=== PATIENT | male | born 1995 | race Hispanic/Latino ===

== ENCOUNTER 2019-09-12 12:56 | Emergency (ER) | payer OTHER ==
[~2019-09-12] VITALS: Ht 190.5 cm; Wt 113.4 kg
[2019-09-12] MEDS ORDERED: CEFTRIAXONE SOD 500 MG VIAL IM ONE (14:15)
--- NOTE | 2019-09-12 14:36 | Emergency Department Note ---
History of Present Illnes History of Present Illness Chief Complaint: COVID PUI History of Present Illness This is a 23 year old male he was seen at clinic on mon for painful burning urination and dx with uti tested for gonorrhea and clamydia has not gotten results back yet states symptoms are worse c/o back pain and fever with n/v c/o muscle aches/chills denies diarrhea worried he may have std last he had sex was this morning and having sex with the same female also c/o dizziness pt given cipro at clinic no pain meds, no IM meds. c/o penile discharge x 3 days with dysuria Historian: Patient Arrival Mode: Car Teletype Telegrapher Required: No Onset (how long ago): day(s) (3) Location: lower back Radiation: Reports non-radiation Severity: moderate Onset quality: gradual Timing of current episode: constant Progression: waxing and waning Chronicity: new Context: Denies recent illness Relieving factors: none Exacerbating factors: none Associated symptoms: Reports denies other symptoms Treatments prior to arrival: none Past Medical/Family History Physician Review I have reviewed the patient's past medical and family history. Any updates have been documented here. Past Medical History Recent Fever: No Clinical Suspicion of Infectio: Yes New/Unexplained Change in Ment: No Past Medical History: None Past Surgical History: None Social History Smoking Cessation: Never Smoker Counseling Performed: No Alcohol Use: None Any Illegal Drug Use: No TB Exposure/Symptoms: No Physically hurt or threatened: No Family History Family history of heart diseas: No Other Any Pre-Existing Lines (PICC,: No Review of Systems Review of Systems Constitutional: Reports no symptoms EENTM: Reports no symptoms Cardiovascular: Reports no symptoms Respiratory: Reports no symptoms Gastrointestinal: Reports no symptoms Genitourinary: Reports as per HPI Musculoskeletal: Reports no symptoms Integumentary: Reports no symptoms Neurological: Reports no symptoms Psychological: Reports no symptoms Endocrine: Reports no symptoms Hematological/Lymphatic: Reports no symptoms Physical Exam Related Data Triage Vital Signs Vital Signs Date Time Temp Pulse Resp B/P (MAP) Pulse Ox O2 Delivery O2 Flow Rate FiO2 09/12/19 13:47 97.9 104 18 137/92 99 Room Air Vital signs reviewed: Yes Physical Exam CONSTITUTIONAL Constitutional: Present well-developed, Present well-nourished HENT HENT: Present normocephalic, Present atraumatic, Present oropharynx clear/moist, Present nose normal HENT L/R: Present left ext ear normal, Present right ext ear normal EYES Eyes: Reports PERRL, Reports conjunctivae normal NECK Neck: Present ROM normal PULMONARY Pulmonary: Present effort normal, Present breath sounds normal CARDIOVASCULAR Cardiovascular: Present regular rhythm, Present heart sounds normal, Present capillary refill normal, Present normal rate GASTROINTESTINAL Abdominal: Present soft, Present nontender, Present bowel sounds normal GENITOURINARY Genitourinary: Present penis normal (uncircumcised, no discharge around glans, positive ds/c from urethral meatus), Present other (no testicular tenderness) SKIN Skin: Present warm, Present dry MUSCULOSKELETAL Musculoskeletal: Present ROM normal NEUROLOGICAL Neurological: Present alert, Present oriented x 3, Present no gross motor or sensory deficits PSYCHOLOGICAL Psychological: Present mood/affect normal, Present judgement normal Assessment & Plan Medical Decision Making [facility] im rocephin, po Azithro Reassessment Reassessment dc home, no sexual relations until all partners completely treated, F/U PCP tomorrow Assessment & Plan Final Impression: (1) STD (male) Depart Disposition: HOME, SELF-CARE Last Vital Signs Date Time Temp Pulse Resp B/P (MAP) Pulse Ox O2 Delivery O2 Flow Rate FiO2 09/12/19 13:47 97.9 104 18 137/92 99 Room Air Medications in the ED Ceftriaxone Sodium 500 mg ONCE ONCE IM ; Start 09/12/19 at 14:15; Stop 09/12/19 at 14:16; Status UNV Azithromycin 1,000 mg NOW ONCE PO ; Start 09/12/19 at 14:15; Stop 09/12/19 at 14:16; Status UNV CLIFFORD MULLEN MD Sep 12, 2019 14:36
[2019-09-12] MEDS ORDERED: AZITHROMYCIN 250 MG TAB ONE (14:43)
[2019-09-12] MEDS ORDERED: AZITHROMYCIN 250 MG TAB PO ONE (14:45)
== END 2019-09-12 15:05 | disposition home or self-care (01) ==
LOC: ER 12:56
DX: A64 Unspecified sexually transmitted disease (principal)
CPT/HCPCS: 99282; J0696

== ENCOUNTER 2019-10-29 21:16 | Emergency (ER) | payer OTHER ==
[~2019-10-29] VITALS: Ht 190.5 cm; Wt 115.2 kg
--- NOTE | 2019-10-29 21:19 | Emergency Department Note ---
History of Present Illnes History of Present Illness History of Present Illness This is a 23 year old male presents to the ED for right sided chest wall pain after he was juijitsu sparring with a partner prior to arrival. Historian: Patient Arrival Mode: Car Onset (how long ago): hour(s) (1) Location: right chest wall Quality: sharp Onset quality: sudden Duration (how long): hour(s) (1) Timing of current episode: constant Progression: unchanged Chronicity: new Context: Reports trauma/injury; Denies recent illness Relieving factors: immobilization, rest Exacerbating factors: movement Associated symptoms: Reports chest pain Treatments prior to arrival: none Past Medical/Family History Physician Review I have reviewed the patient's past medical and family history. Any updates have been documented here. Past Medical History Recent Fever: No Clinical Suspicion of Infectio: No New/Unexplained Change in Ment: No Past Medical History: None Past Surgical History: None Social History Smoking Cessation: Never Smoker Alcohol Use: None Any Illegal Drug Use: No Review of Systems Review of Systems Constitutional: Reports no symptoms EENTM: Reports no symptoms Cardiovascular: Reports chest pain Respiratory: Reports no symptoms Gastrointestinal: Reports no symptoms Genitourinary: Reports no symptoms Musculoskeletal: Reports no symptoms Integumentary: Reports no symptoms Neurological: Reports no symptoms Psychological: Reports no symptoms Endocrine: Reports no symptoms Hematological/Lymphatic: Reports no symptoms Physical Exam Related Data Allergies: Coded Allergies: No Known Allergies (Unverified , 09/12/19) Triage Vital Signs Vital Signs Date Time Temp Pulse Resp B/P (MAP) Pulse Ox O2 Delivery O2 Flow Rate FiO2 10/29/19 22:33 98.3 81 21 138/97 100 Room Air Vital signs reviewed: Yes Physical Exam CONSTITUTIONAL Constitutional: Present well-developed, Present well-nourished HENT HENT: Present normocephalic, Present atraumatic, Present oropharynx clear/moist, Present nose normal HENT L/R: Present left ext ear normal, Present right ext ear normal EYES Eyes: Reports PERRL, Reports conjunctivae normal NECK Neck: Present ROM normal PULMONARY Pulmonary: Present chest tenderness (anterior right lower region) CARDIOVASCULAR Cardiovascular: Present regular rhythm, Present heart sounds normal, Present capillary refill normal, Present normal rate GASTROINTESTINAL Abdominal: Present soft, Present nontender, Present bowel sounds normal GENITOURINARY Genitourinary: Present exam deferred SKIN Skin: Present warm, Present dry MUSCULOSKELETAL Musculoskeletal: Present ROM normal NEUROLOGICAL Neurological: Present alert, Present oriented x 3, Present no gross motor or sensory deficits PSYCHOLOGICAL Psychological: Present mood/affect normal, Present judgement normal Results Imaging Imaging results reviewed: Yes Impressions [facility] [address] [address] Patient Name: EUGENIO METZGER MR #: [id number] : 1995 Age/Sex: 23/M Req #: [id number] Adm Physician: Ordered by: YOKASTA GRIFFIN DO Report #: [id number] Location: ER Room/Bed: Procedure: [id number] CT/CT CHEST WO Exam Date: 10/29/19 Exam Time: 2200 REPORT STATUS: Signed EXAM: CT Chest WITHOUT contrast INDICATION: RLL rib pain COMPARISON: None TECHNIQUE: Chest was scanned utilizing a multidetector helical scanner from the lung apex through the level of the adrenal glands without administration of IV contrast. Absence of intravenous contrast decreases sensitivity for detection of lymphadenopathy and vascular pathology. Coronal and sagittal reformations were obtained. Routine protocol was performed. IV CONTRAST: None COMPLICATIONS: None RADIATION DOSE: Total DLP: 711.20 mGy*cm Estimated effective dose: (DLP x 0.014 x size factor) mSv CTDIvol has been reviewed. It is below the limits set by the Radiation Protocol Committee (RPC). Dose modulation, iterative reconstruction, and/or weight based adjustment of the mA/kV was utilized to reduce the radiation dose to as low as reasonably achievable. FINDINGS: LINES/ TUBES: None. LUNGS AND AIRWAYS: The lungs are unremarkable. Airways are normal. PLEURA: The pleural spaces are clear. HEART AND MEDIASTINUM: The thyroid gland is normal. No mediastinal, hilar or axillary lymphadenopathy. The heart is normal in size. There is no pericardial effusion. UPPER ABDOMEN: Unremarkable. BONES: The visualized bony thorax is within normal limits. SOFT TISSUES: Unremarkable. IMPRESSION: No acute displaced rib fractures. Signed by: Benson Herman MD on 10/29/2019 11:15 PM Dictated By: BENSON HERMAN MD 14 Transcribed By: KASIE on 10/29/192314 COPY TO: YOKASTA GRIFFIN DO~ Assessment & Plan Medical Decision Making MDM Chest wall trauma , Diff Dx : rib fracture, pneumothorax, liver laceration, rib contusion., chest wall contusion, chest wall strain . Assessment & Plan Final Impression: (1) Chest wall contusion Depart Disposition: HOME, SELF-CARE YOKASTA GRIFFIN DO Oct 29, 2019 21:19
--- NOTE | 2019-10-29 23:18 | Diagnostic Imaging Report ---
EXAM: CT Chest WITHOUT contrast INDICATION: RLL rib pain COMPARISON: None TECHNIQUE: Chest was scanned utilizing a multidetector helical scanner from the lung apex through the level of the adrenal glands without administration of IV contrast. Absence of intravenous contrast decreases sensitivity for detection of lymphadenopathy and vascular pathology. Coronal and sagittal reformations were obtained. Routine protocol was performed. IV CONTRAST: None COMPLICATIONS: None RADIATION DOSE: Total DLP: 711.20 mGy*cm Estimated effective dose: (DLP x 0.014 x size factor) mSv CTDIvol has been reviewed. It is below the limits set by the Radiation Protocol Committee (RPC). Dose modulation, iterative reconstruction, and/or weight based adjustment of the mA/kV was utilized to reduce the radiation dose to as low as reasonably achievable. FINDINGS: LINES/ TUBES: None. LUNGS AND AIRWAYS: The lungs are unremarkable. Airways are normal. PLEURA: The pleural spaces are clear. HEART AND MEDIASTINUM: The thyroid gland is normal. No mediastinal, hilar or axillary lymphadenopathy. The heart is normal in size. There is no pericardial effusion. UPPER ABDOMEN: Unremarkable. BONES: The visualized bony thorax is within normal limits. SOFT TISSUES: Unremarkable. IMPRESSION: No acute displaced rib fractures. Signed by: Dm Horvath MD on 10/29/2019 11:15 PM
[2019-10-29 23:57] VITALS: BP 142/88
--- OUTSIDE RECORDS SUMMARY | 2019-10-30 00:35 | XMS REPORT | Continuity of Care Document ---
Author Author [facility] t Organization [facility] Address [address] [place] [address] Phone Unavailable Care Team Providers Care Brisket Puller Name Role Phone NONSTAFF PCP Unavailable YOKASTA GRIFFIN Unavailable Payers Payer Name Policy Type Policy Number Effective Date Expiration Date Hollie kong [employer] o [id number] 2019 00:00:00 [facility] Miscellaneous o [id number] 2019 00:00:00 [facility] Problems Condition Name Condition Details Condition Category Status Onset Date Resolution Date Last Treatment Date Treating Clinician Comments Source Sexually transmitted disease in male Problem Active [facility] Allergies, Adverse Reactions, Alerts Allergy Name Allergy Type Status Severity Reaction(s) Onset Date Inacti ve Date Treating Clinician Comments Source No Known Allergies DA Active U 2018-03-15 00:00:00 [facility] No Known Contrast Allergies DA Active U 2007-12-05 00:00: 00 [facility] No Known Drug Allergies DA Active U 2007-12-05 00:00:00 [facility] No Known Food Allergies DA Active U 2007-12-05 00:00:00 [facility] No Known Other Allergies DA Active U 2007-12-05 00:00:00 [facility] Social History Social Habit Start Date Stop Date Quantity Comments Source Sex Assigned At 1995 00:00:00 1995 00:00:00 Male [facility] Medications This patient has no known medications. Vital Signs Vital Name Observation Time Observation Value Comments Source Weight 2019-09-12 13:47:00 250 [lb_av] [facility] BMI (Body Mass Index) 2019-09-12 13:47:00 31.2 kg/m2 [facility] Procedures This patient has no known procedures. Plan of Care Planned Activity Planned Date Details Comments Source Instructions Urinary Tract Infection - Men [facility] Encounters Start Date/Time End Date/Time Encounter Type Admission Type Attendi [facility] Care Department Encounter ID Source 2019-09-12 12:56:00 2019-09-12 15:05:00 Departed Emergency Room [facility] [id number] [facility] Results Test Description Test Time Test Comments Results Result Comments Source CT CHEST WO 2019-10-29 23:05:00 [facility] [address] [address] Patient Name: EUGENIO METZGER MR #: [id number] : 1995 Age/Sex: 23/M Req #: [id number] Adm Physician: Ordered by: YOKASTA GRIFFIN DO Report #: [id number] Location: ER Room/Bed: Procedure: [id number] CT/CT CHEST WO Exam Date: 10/29/19 Exam Time: 2200 REPORT STATUS: Signed EXAM: CT Chest WITHOUT contrast INDICATION: RLL rib pain COMPARISON: None TECHNIQUE: Chest was scanned utilizing a multidetector helical scanner from the lung apex through the level of the adrenal glands without administration of IV contrast. Absence of intravenous contrast decreases sensitivity for detection of lymphadenopathy and vascular pathology. Coronal and sagittal reformations were obtained. Routine protocol was performed. IV CONTRAST: None COMPLICATIONS: None RADIATION DOSE: Total DLP: 711.20 mGy*cm Estimated effective dose: (DLP x 0.014 x size factor) mSv CTDIvol has been reviewed. It is below the limits set by the Radiation Protocol Committee (RPC). Dose modulation, iterative reconstruction, and/or weight based adjustment of the mA/kV was utilized to reduce the radiation dose to as low as reasonably achievable. FINDINGS: LINES/ TUBES: None. LUNGS AND AIRWAYS: The lungs are unremarkable. Airways are normal. PLEURA: The pleural spaces are clear. HEART AND MEDIASTINUM: The thyroid gland is normal. No mediastinal, hilar or axillary lymphadenopathy. The heart is normal in size. There is no pericardial effusion. UPPER ABDOMEN: Un remarkable. BONES: The visualized bony thorax is within normal limits. SOFT TISSUES: Unremarkable. IMPRESSION: No acute displaced rib fractures. Signed by: Benson Herman MD on 10/29/2019 11:15 PM Dictated By: BENSON HERMAN MD 14 Transcribed By: KASIE on 10/29/192314 COPY TO: YOKASTA GRIFFIN DO
== END 2019-10-29 23:50 | disposition home or self-care (01) ==
LOC: ER 21:20
DX: R07.89 Other chest pain (principal); S20.211A Contusion of right front wall of thorax, initial encounter; Y93.75 Activity, martial arts; Y92.39 Other specified sports and athletic area as the place of occurrence of the external cause
CPT/HCPCS: 71250; 99283

== ENCOUNTER 2019-11-04 01:13 | Emergency (ER) | payer OTHER ==
[~2019-11-04] VITALS: Ht 188 cm; Wt 115.2 kg
[2019-11-04] MEDS ORDERED: KETOROLAC TROMETHAMINE 60 MG/2 ML VIAL IM ONE (01:30)
[2019-11-04] MEDS ORDERED: ORPHENADRINE CITRATE 30 MG/ML VIAL IM ONE (01:30)
--- NOTE | 2019-11-04 01:34 | Emergency Department Note ---
History of Present Illnes History of Present Illness Chief Complaint: Abdominal Complaints History of Present Illness This is a 23 year old male C/O RT LOWER RIB PAIN X 2 WEEKS. PT WAS SEEN IN THIS ED AFTER INITIAL TRAUMA TO AREA AFTER JIU JITSU CLASS, CT NEG FOR FRACTURE AT THAT TIME. PT STATES TODAY HE HAD CPR CLASS AND TONIGHT PAIN IT WORSENED UPON LAYING DOWN TO SLEEP. 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 PT ALSO REPORTS DRINKING BEER X 2 TONIGHT. . Historian: Patient Arrival Mode: Car Onset (how long ago): hour(s) (2) Location: RIGHT RIBS Quality: PAIN Radiation: Reports non-radiation Severity: moderate Onset quality: gradual Duration (how long): hour(s) (2) Timing of current episode: constant Progression: worsening Chronicity: recurrent Context: Reports trauma/injury (INJURED RIGHT RIBS RECENTLY IN JU JITSU CLASS); Denies recent illness, Denies recent surgery Relieving factors: none Exacerbating factors: movement Associated symptoms: Reports denies other symptoms Treatments prior to arrival: other (TRAMADOL 100 MG PO HEMATOLOGY TECHNOLOGIST) Past Medical/Family History Physician Review I have reviewed the patient's past medical and family history. Any updates have been documented here. Past Medical History Recent Fever: No Clinical Suspicion of Infectio: No New/Unexplained Change in Ment: No Past Medical History: None Past Surgical History: None Social History Smoking Cessation: Never Smoker Alcohol Use: Occasional Any Illegal Drug Use: No Physically hurt or threatened: No Family History Family history of heart diseas: No Review of Systems Review of Systems Constitutional: Reports no symptoms EENTM: Reports no symptoms Cardiovascular: Reports no symptoms Respiratory: Reports no symptoms Gastrointestinal: Reports no symptoms Genitourinary: Reports no symptoms Musculoskeletal: Reports as per HPI Integumentary: Reports no symptoms Neurological: Reports no symptoms Psychological: Reports no symptoms Endocrine: Reports no symptoms Hematological/Lymphatic: Reports no symptoms Physical Exam Related Data Allergies: Coded Allergies: No Known Allergies (Unverified , 09/12/19) Triage Vital Signs Vital Signs Date Time Temp Pulse Resp B/P (MAP) Pulse Ox O2 Delivery O2 Flow Rate FiO2 11/04/19 01:15 98.0 81 24 148/100 100 Room Air Vital signs reviewed: Yes Physical Exam CONSTITUTIONAL Constitutional: Present well-developed, Present well-nourished HENT HENT: Present normocephalic, Present atraumatic, Present oropharynx clear/moist, Present nose normal HENT L/R: Present left ext ear normal, Present right ext ear normal EYES Eyes: Reports PERRL, Reports conjunctivae normal NECK Neck: Present ROM normal PULMONARY Pulmonary: Present effort normal, Present breath sounds normal, Present chest tenderness (RIGHT LATERAL LOWER RIBS) CARDIOVASCULAR Cardiovascular: Present regular rhythm, Present heart sounds normal, Present capillary refill normal, Present normal rate GASTROINTESTINAL Abdominal: Present soft, Present nontender, Present bowel sounds normal GENITOURINARY Genitourinary: Present exam deferred SKIN Skin: Present warm, Present dry MUSCULOSKELETAL Musculoskeletal: Present ROM normal NEUROLOGICAL Neurological: Present alert, Present oriented x 3, Present no gross motor or sensory deficits PSYCHOLOGICAL Psychological: Present mood/affect normal, Present judgement normal Results Imaging Imaging results reviewed: Yes Impressions rocedure: [id number] DX/RIBS UNILAT W/CXR Exam Date: 11/04/19 Exam Time: 0155 REPORT STATUS: Signed EXAMINATION: RIBS RIGHT UNILAT W/CXR 2 views INDICATION: RIGHT RIB PAIN COMPARISON: None FINDINGS: TUBES and LINES: None. LUNGS: Normal lung volumes. Lungs are clear. No consolidations. PLEURA: No pleural effusion or pneumothorax. HEART AND MEDIASTINUM: The cardiomediastinal silhouette is unremarkable. BONES AND SOFT TISSUES: No acute displaced rib fractures. UPPER ABDOMEN: No free air under the diaphragm. IMPRESSION: No acute thoracic radiographic abnormality. No acute displaced rib fractures. Signed by: Benson Herman MD on 11/04/2019 2:29 AM Dictated By: BENSON HERMAN MD 8 Transcribed By: KASIE on 11/04/19228 COPY TO: JUNIOR MARADIAGA MD~ Assessment & Plan Medical Decision Making MDM Patient with right lower rib pain that started in jujitsu class several days ago. Donated a CPR class pain has become worse since to receive her class pain much worse when laying down tonight. Patient states he took 250 mg tramadol just before he came to the hospital. Right rib series and chest x-ray ordered to eval for fractures pneumothorax. Toradol 60 mg IM ordered, Norflex 60 mg IM ordered. Assessment & Plan Final Impression: (1) Chest wall pain Depart Disposition: HOME, SELF-CARE Last Vital Signs Date Time Temp Pulse Resp B/P (MAP) Pulse Ox O2 Delivery O2 Flow Rate FiO2 11/04/19 01:19 98.0 84 24 148/100 100 Room Air Medications in the ED Ketorolac Tromethamine 60 mg ONCE ONCE IM ; Start 11/04/19 at 01:30; Stop 11/04/19 at 01:31; Status UNV Orphenadrine Citrate 60 mg ONCE ONCE IM ; Start 11/04/19 at 01:30; Stop 11/04/19 at 01:31 JUNIOR MARADIAGA MD Nov 04, 2019 01:34
[2019-11-04] MEDS ORDERED: KETOROLAC TROMETHAMINE 30 MG/ML VIAL ONE (01:38)
--- OUTSIDE RECORDS SUMMARY | 2019-11-04 02:19 | XMS REPORT | Continuity of Care Document ---
Author Author [facility] t Organization [facility] Address [address] [place] [address] Phone Unavailable Care Team Providers Care Antique Repairer Name Role Phone NONSTAFF PCP Unavailable YOKASTA GRIFFIN Unavailable Payers Payer Name Policy Type Policy Number Effective Date Expiration Date Hollie kong [employer] o [id number] 2019 00:00:00 [facility] Miscellaneous o [id number] 2019 00:00:00 [facility] Problems Condition Name Condition Details Condition Category Status Onset Date Resolution Date Last Treatment Date Treating Clinician Comments Source Sexually transmitted disease in male Problem Active [facility] Allergies, Adverse Reactions, Alerts Allergy Name Allergy Type Status Severity Reaction(s) Onset Date Inacti ve Date Treating Clinician Comments Source No Known Allergies DA Active U 2018-03-15 00:00:00 [facility] No Known Contrast Allergies DA Active U 2007-12-05 00:00: 00 [facility] No Known Drug Allergies DA Active U 2007-12-05 00:00:00 [facility] No Known Food Allergies DA Active U 2007-12-05 00:00:00 [facility] No Known Other Allergies DA Active U 2007-12-05 00:00:00 [facility] Social History Social Habit Start Date Stop Date Quantity Comments Source Sex Assigned At 1995 00:00:00 1995 00:00:00 Male [facility] Medications This patient has no known medications. Vital Signs Vital Name Observation Time Observation Value Comments Source Weight 2019-10-29 22:33:00 254 [lb_av] [facility] BMI (Body Mass Index) 2019-10-29 22:33:00 31.7 kg/m2 [facility] Weight 2019-09-12 13:47:00 250 [lb_av] [facility] BMI (Body Mass Index) 2019-09-12 13:47:00 31.2 kg/m2 [facility] Procedures Procedure Date / Time Performed Performing Clinician [facility] e Computed tomography of chest without contrast 2019-10-29 00:00:0 0 [facility] Plan of Care Planned Activity Planned Date Details Comments Source Instructions Chest Pain - Chest Wall [facility] Encounters Start Date/Time End Date/Time Encounter Type Admission Type Attendi [facility] Care Department Encounter ID Source 2019-10-29 21:20:00 2019-10-29 21:20:00 Registered Emergency Room YOKASTA GRIFFIN [facility] [id number] I [facility] 2019-09-12 12:56:00 2019-09-12 15:05:[address] [facility] [id number] [facility] Results Test Description Test Time Test Comments Results Result Comments Source CT CHEST WO 2019-10-29 23:05:00 [facility] [address] [place] [address] Patient Name: EUGENIO METZGER MR #: [id number] : 1995 Age/Sex: 23/M Req #: [id number] Adm Physician: Ordered by: YOKASTA GRIFFIN DO Report #: [id number] Location: ER Room/Bed: Procedure: [id number] CT/CT CHEST WO Exam Date: 10/29/19 Exam Time: 2199 REPORT STATUS: Signed EXAM: CT Chest WITHOUT [...]
--- NOTE | 2019-11-04 02:32 | Diagnostic Imaging Report ---
EXAMINATION: RIBS RIGHT UNILAT W/CXR 2 views INDICATION: RIGHT RIB PAIN COMPARISON: None FINDINGS: TUBES and LINES: None. LUNGS: Normal lung volumes. Lungs are clear. No consolidations. PLEURA: No pleural effusion or pneumothorax. HEART AND MEDIASTINUM: The cardiomediastinal silhouette is unremarkable. BONES AND SOFT TISSUES: No acute displaced rib fractures. UPPER ABDOMEN: No free air under the diaphragm. IMPRESSION: No acute thoracic radiographic abnormality. No acute displaced rib fractures. Signed by: Dm Horvath MD on 11/04/2019 2:29 AM
[2019-11-04 02:50] VITALS: BP 118/74
== END 2019-11-04 03:00 | disposition home or self-care (01) ==
LOC: ER 01:18
DX: R07.89 Other chest pain (principal); Y93.75 Activity, martial arts
CPT/HCPCS: 71101; 96372; 99283; J1885; J2360